=== PATIENT | female | born 1950 | race Caucasian/White ===

== ENCOUNTER 2017-12-18 10:00 | Outpatient (CLI) | payer MEDICARE, BC | END 2017-12-18 10:01 | disposition home or self-care (01) | LOC: BICMAMMO 10:00 | PROVIDERS: ATTEND Obstetrics & Gynecology | DX: Z12.31 Encounter for screening mammogram for malignant neoplasm of breast (principal) | CPT/HCPCS: 77063; 77067 ==

== ENCOUNTER 2018-12-19 09:45 | Outpatient (CLI) | payer MEDICARE, BC ==
--- NOTE | 2018-12-19 10:34 | MMO ---
Bilateral MAMMO Bilat Screen [facility]. CLINICAL HISTORY: Patient is 68 years old and is seen for screening. The patient has no family history of breast cancer. The patient has no personal history of cancer. VIEWS: The views performed were: bilateral craniocaudal with tomosynthesis; bilateral mediolateral oblique with tomosynthesis; and right exaggerated craniocaudal. FILMS COMPARED: The present examination has been compared to prior imaging studies performed at [facility] on 12/04/2014, 12/06/2015, 12/12/2016 and 12/18/2017. This study has been interpreted with the assistance of computer-aided detection. MAMMOGRAM FINDINGS: The breasts are heterogeneously dense, which could obscure a lesion on mammography. There are stable benign appearing calcifications seen in both breasts. There are no suspicious masses, calcifications or areas of architectural distortion. There are no suspicious masses, suspicious calcifications, or new areas of architectural distortion. IMPRESSION: THERE IS NO MAMMOGRAPHIC EVIDENCE OF MALIGNANCY. A ROUTINE FOLLOW-UP MAMMOGRAM IN 1 YEAR IS RECOMMENDED. THE RESULTS OF THIS EXAM WERE SENT TO THE PATIENT. ACR BI-RADS Category 2 - Benign finding MAMMOGRAPHY NOTE: 1. A negative mammogram report should not delay a biopsy if a dominant of clinically suspicious mass is present. 2. Approximately 10% to 15% of breast cancers are not detected by mammography. 3. Adenosis and dense breasts may obscure an underlying neoplasm. Reported by: ELIZABETH FOFANA MD Electonically Signed: [id number]
== END 2018-12-19 09:46 | disposition home or self-care (01) ==
LOC: BICMAMMO 09:45
PROVIDERS: ATTEND Obstetrics & Gynecology
DX: Z12.31 Encounter for screening mammogram for malignant neoplasm of breast (principal)
CPT/HCPCS: 77063; 77067

== ENCOUNTER 2019-01-31 08:00 | Outpatient (CLI) | payer MEDICARE, BC ==
--- NOTE | 2019-01-31 11:10 | RAD ---
BIPHASIC UPPER GI: HISTORY: Functional dyspepsia. FINDINGS: Swallowing is grossly normal. There are tertiary contractions in the esophagus. No evidence of ulcer, stricture, mass or diverticulum is seen. There is normal capacity of contrast from the esophagus int o the stomach, duodenum and proximal jejunum. No GE reflux was demonstrated during the Valsalva maneu leandra. IMPRESSION: Presbyesophagus. POS: [facility]
== END 2019-01-31 08:01 | disposition home or self-care (01) ==
LOC: RAD 08:00
PROVIDERS: ATTEND Internal Medicine
DX: K30 Functional dyspepsia (principal); K22.8 Other specified diseases of esophagus
CPT/HCPCS: 74247

== ENCOUNTER 2020-11-03 13:13 | Outpatient (CLI) | payer MEDICARE, BC | END 2020-11-03 13:14 | disposition home or self-care (01) | LOC: BICRAD 13:13 | PROVIDERS: ATTEND Internal Medicine | DX: M19.041 Primary osteoarthritis, right hand (principal) ==

== ENCOUNTER 2022-01-30 15:22 | Outpatient (CLI) | payer MEDICARE, BC | END 2022-01-30 15:23 | disposition home or self-care (01) | LOC: BICRAD 15:22 | PROVIDERS: ATTEND Internal Medicine | DX: J06.9 Acute upper respiratory infection, unspecified (principal) | CPT/HCPCS: 71046 ==